=== PATIENT | female | born 1980 | race Two or more races ===

== ENCOUNTER 2019-11-14 14:38 | Emergency (ER) | payer OTHER ==
[~2019-11-14] VITALS: Ht 170.2 cm; Wt 74.1 kg
[2019-11-14 14:38] VITALS: BP 153/78
--- NOTE | 2019-11-14 15:59 | PHYS DOC ---
General Adult EDM: Chief Complaint: Neck Pain HPI: HPI: History obtained from the patient. Patient is a 39-year-old female with no reported PMH who presents with chief complaint of acute onset neck pain. Patient states she is noticed cervical paraspinal stiffness over the past 2 weeks. States the pain seemed to acutely worsened today. States she was actively suctioning discharge from her baby's nose when she noted acute midline cervical spine pain that radiates to her mid thoracic region. She states flexing or extending her neck seems to exacerbate the symptoms. She states she is able to rotate her head left and right with minimal symptoms. She notes some lateral movement of her head to the right seems to make the pain worse. She denies any fevers. Denies any photophobia or phonophobia. Denies headache. Denies vomiting. Denies history of IV drug use. Denies any low back pain. Denies trauma or injury. States the pain does not radiate to the arms either direction. She states she was seen in urgent care facility prior to arrival. She states she was instructed report to the emergency department for potential neck imaging. She was prescribed prednisone and Flexeril by that urgent care facility. No other complaints. Review of Systems: Review of Systems: Constitutional: Denies fever or chills Eyes: Denies change in visual acuity HENT: Denies nasal congestion or sore throat Respiratory: Denies cough or shortness of breath Cardiovascular: Denies chest pain or edema GI: Denies abdominal pain, nausea, vomiting, bloody stools or diarrhea : Denies dysuria Musculoskeletal: Positive for neck and back pain Integument: Denies rash Neurologic: Denies headache, focal weakness or sensory changes Endocrine: Denies polyuria or polydipsia Lymphatic: Denies swollen glands Psychiatric: Denies depression or anxiety Heart Score: Risk Factors: Risk Factors: DM, Current or recent (<one month) smoker, HTN, HLP, family history of CAD, obesity. Risk Scores: Score 0 - 3: 2.5% MACE over next 6 weeks - Discharge Home Score 4 - 6: 20.3% MACE over next 6 weeks - Admit for Clinical Observation Score 7 - 10: 72.7% MACE over next 6 weeks - Early Invasive Strategies Physical Exam: PE: Constitutional: Well developed, well nourished, no acute distress, non-toxic appearance. [] HENT: Normocephalic, atraumatic, bilateral external ears normal, oropharynx moist, no oral exudates, nose normal. [] Eyes: PERRLA, EOMI, conjunctiva normal, no discharge. [] Neck: Limited flexion and extension range of motion secondary to pain. Compression of the head does not exacerbate symptoms. Slight worsening of symptoms with right lateral head movement. Rotational movement does not make patient's symptoms worse. Negative Kernig's sign. Cardiovascular:Heart rate regular rhythm, no murmur [] Lungs & Thorax: Bilateral breath sounds clear to auscultation [] Abdomen: soft, no tenderness, no masses, no pulsatile masses. [] Skin: Warm, dry, no erythema, no rash. [] Back: No tenderness, no CVA tenderness. [] Extremities: No tenderness, no cyanosis, no clubbing, ROM intact, no edema. Tso strength plus 5 out of 5. Sensation intact in median, ulnar, radial nerve distributions bilaterally. Currently movements intact Bilaterally. [] Neurologic: Alert and oriented X 3, normal motor function, normal sensory function, no focal deficits noted. [] Psychologic: Affect normal, judgement normal, mood normal. [] EKG: EKG: [] Radiology/Procedures: Radiology/Procedures: [place] [address] IMAGING REPORT Signed PATIENT: MURRAY RANKINOUNT: [id number] : 1980 LOCATION: ER AGE: 39 SEX: F EXAM STATUS: REG ER ORD. PHYSICIAN: SCOTT GONZALEZ DO REASON: neck pain radiating down throacic spine PROCEDURE: CT CERVICAL SPINE WO CONTRAST STUDY: 1. CT cervical spine without contrast 2. CT thoracic spine without contrast INDICATION: Neck pain radiating down to the thoracic spine. COMPARISON: None. TECHNIQUE: Helical CT imaging of the cervical and thoracic spine performed without the use of contrast. Coronal and sagittal reformats were obtained. One or more of the following individualized dose reduction techniques were utilized for this examination: 1. Automated exposure control 2. Adjustment of the mA and/or kV according to patient size 3. Use of iterative reconstruction technique. FINDINGS: CERVICAL SPINE: No acute fracture or aggressive osseous process. Straightening of cervical lordosis with mild reversal centered at C5. Disc space height is maintained. No significant listhesis. No advanced facet degeneration with only mild facet arthrosis on the left at C7-T1. Though not well evaluated by technique, no significant central canal or neural foraminal stenosis is identified. Unremarkable thyroid, prevertebral/dorsal paraspinous soft tissues and cervical chain lymph nodes. CSF density collection at the middle cranial fossa on the right most typical of a subarachnoid cyst. THORACIC SPINE: Mild ventral height loss at T2 is not an acute finding and could be developmental. No acute fracture or aggressive osseous process. Incidental unilateral pars defect on the left at L2. Normal vertebral body alignment. Maintained disc space height. Unremarkable posterior elements. No advanced degenerative changes. There is a small peripherally mineralized disc protrusion at T1-T2 but without evidence for significant central canal stenosis at this level or elsewhere. No osseous neural foraminal encroachment. No noteworthy abnormality involving the visualized lungs, mediastinal contents or upper abdomen. IMPRESSION: CERVICAL SPINE: 1. No acute osseous abnormality. No advanced degenerative changes and there is no evidence by CT for significant central canal or neural foraminal stenosis. There does appear to be a mild disc bulge at C5-C6 but again with presumably no more than mild associated central canal stenosis. If there are ongoing symptoms, eventual nonemergent/outpatient MRI could be performed. THORACIC SPINE: 1. No acute osseous abnormality or advanced degenerative changes. No evidence for significant central canal or neural foraminal stenosis. Electronically signed by: LORAINE LEYVA MD (11/14/2019 4:22 PM) [id number] DICTATED AND SIGNED BY: LORAINE LEYVA MD DATE: 11/14/19 162 CC: PCP,UNKNOWN; SCOTT GONZALEZ DO ~ [] Course & Med Decision Making: Course & Med Decision Making Pertinent Labs and Imaging studies reviewed. (See chart for details) [] Patient is a very pleasant 39-year-old female presents with chief complaint of midline neck pain that seems to radiate down her thoracic spine. Denies any trauma or injury. Initial vital signs grossly unremarkable. No meningeal signs or signs of infection appreciated. I do feel her symptoms are likely musculoskeletal in nature. CT imaging of the neck was obtained and reveals slight bulging at C5-C6 vertebra. Patient has no focal neurologic deficits on examination. Patient was given medication in the emergency department for her symptoms. She did show improved range of motion after medication. I did not feel laboratory analysis will yield further diagnostic information. I do feel she is appropriate for discharge home. She was instructed to follow-up with her primary care physician in the next 2 to 3 days. Return precautions were discussed and understood. She does show prescriptions for a short steroid course as well as Flexeril from the urgent care provider. She will be given additional Tylenol and Lidoderm patch for relief. Dragon Disclaimer: Dragon Disclaimer: This electronic medical record was generated, in whole or in part, using a voice recognition dictation system. Departure Departure: Impression: Primary Impression: Neck pain Additional Impression: Cervical disc disorder of mid-cervical region Disposition: HOME/RESIDENCE PRIOR TO ADM Condition: STABLE Referrals: PCP,UNKNOWN (PCP) MELL SCHULTZ MD Patient Instructions: Anterior Cervical Diskectomy and Fusion, Cervical Radiculopathy Additional Instructions: Please follow-up with your primary care physician in the next 2 to 3 days. Scripts Lidocaine (Lidocaine PATCH ) 1 Each Adh..patch 1 EACH TP DAILY for FOR LOCAL PAIN for 5 Days, #5 PATCH REMOVE AFTER 12 HOURS Prov: SCOTT GONZALEZ DO 11/14/19 Acetaminophen (TYLENOL) 325 Mg Tablet 325 MG PO TID PRN PRN for PAIN, #20 TAB Prov: SCOTT GONZALEZ DO 11/14/19 SCOTT GONZALEZ DO Nov 14, 2019 15:59
--- NOTE | 2019-11-14 16:24 | RAD ---
STUDY: 1. CT cervical spine without contrast 2. CT thoracic spine without contrast INDICATION: Neck pain radiating down to the thoracic spine. COMPARISON: None. TECHNIQUE: Helical CT imaging of the cervical and thoracic spine performed without the use of contrast. Coronal and sagittal reformats were obtained. One or more of the following individualized dose reduction techniques were utilized for this examination: 1. Automated exposure control 2. Adjustment of the mA and/or kV according to patient size 3. Use of iterative reconstruction technique. FINDINGS: CERVICAL SPINE: No acute fracture or aggressive osseous process. Straightening of cervical lordosis with mild reversal centered at C5. Disc space height is maintained. No significant listhesis. No advanced facet degeneration with only mild facet arthrosis on the left at C7-T1. Though not well evaluated by technique, no significant central canal or neural foraminal stenosis is identified. Unremarkable thyroid, prevertebral/dorsal paraspinous soft tissues and cervical chain lymph nodes. CSF density collection at the middle cranial fossa on the right most typical of a subarachnoid cyst. THORACIC SPINE: Mild ventral height loss at T2 is not an acute finding and could be developmental. No acute fracture or aggressive osseous process. Incidental unilateral pars defect on the left at L2. Normal vertebral body alignment. Maintained disc space height. Unremarkable posterior elements. No advanced degenerative changes. There is a small peripherally mineralized disc protrusion at T1-T2 but without evidence for significant central canal stenosis at this level or elsewhere. No osseous neural foraminal encroachment. No noteworthy abnormality involving the visualized lungs, mediastinal contents or upper abdomen. IMPRESSION: CERVICAL SPINE: 1. No acute osseous abnormality. No advanced degenerative changes and there is no evidence by CT for significant central canal or neural foraminal stenosis. There does appear to be a mild disc bulge at C5-C6 but again with presumably no more than mild associated central canal stenosis. If there are ongoing symptoms, eventual nonemergent/outpatient MRI could be performed. THORACIC SPINE: 1. No acute osseous abnormality or advanced degenerative changes. No evidence for significant central canal or neural foraminal stenosis. Electronically signed by: LORAINE LEYVA MD (11/14/2019 4:22 PM) [id number]
[2019-11-14] MEDS ORDERED: LIDOCAINE (700MG/PATCH) PATCH. TD SCH (16:30)
[2019-11-14] MEDS ORDERED: HYDROcodone/APAP 5/325MG 1 TAB TABLET PO ONE (16:30)
[2019-11-14] MEDS ORDERED: KETOROLAC 30 MG/ML VIAL. IM ONE (16:30)
[2019-11-14] MEDS ORDERED: LIDO700A21 TP (16:44)
[2019-11-14] MEDS ORDERED: ACET325T9 PO (16:44)
[2019-11-14] MEDS ORDERED: CYCLOBENZAPRINE 10 MG TABLET. PO ONE (16:45)
== END 2019-11-14 17:08 | disposition home or self-care (01) ==
LOC: ER 14:38
DX: M50.822 Other cervical disc disorders at C5-C6 level (principal)
CPT/HCPCS: 72125; 72128; 96372; 99285; J1885

== ENCOUNTER 2020-02-22 11:02 | Emergency (ER) | payer OTHER ==
[~2020-02-22] VITALS: Ht 170.2 cm; Wt 72.0 kg
[~2020-02-22 11:02] MED LIST: ACET325T9 PO; LIDO700A21 TP
[2020-02-22 11:27] VITALS: BP 126/79
[2020-02-22 12:17] LABS: BASO % 0 % (0-3); EOS # 0.1 x10^3/uL (0.0-0.7); EOS % 1 % (0-3); HEMATOCRIT 38.8 % (36.0-47.0); HEMOGLOBIN 12.9 g/dL (12.0-15.5); LYMPH # 1.6 x10^3/uL (1.0-4.8); LYMPH % 15 % (24-48); MEAN CORPUSCULAR HEMOGLOBIN 31 pg (25-35); MEAN CORPUSCULAR HGB CONC 33 g/dL (31-37); MEAN CORPUSCULAR VOLUME 92 fL (79-100); MONO # 0.7 x10^3/uL (0.0-1.1); MONO % 6 % (0-9); NEUT # 8.7 x10^3uL (1.8-7.7); NEUT % 78 % (31-73); PLATELET COUNT 295 x10^3/uL (140-400); RED BLOOD COUNT 4.23 x10^6/uL (3.50-5.40); RED CELL DISTRIBUTION WIDTH 12.1 % (11.5-14.5); WHITE BLOOD COUNT 11.2 x10^3/uL (4.0-11.0)
[2020-02-22 12:31] LABS: CALCIUM 8.4 mg/dL (8.5-10.1); CREATININE 0.5 mg/dL (0.6-1.0); GFR 138.1; POTASSIUM 4.5 mmol/L (3.5-5.1)
[2020-02-22 12:37] LABS: ALBUMIN 3.4 g/dL (3.4-5.0); ALBUMIN/GLOBULIN RATIO 0.8 (1.0-1.7); TOTAL BILIRUBIN 0.2 mg/dL (0.2-1.0); TOTAL PROTEIN 7.5 g/dL (6.4-8.2)
[2020-02-22 12:43] LABS: BILIRUBIN,URINE NEG (NEG); CLARITY,URINE HAZY; COLOR,URINE YELLOW; GLUCOSE,URINE NEG (NEG); NITRITE,URINE NEG (NEG); RBC,URINE OCC /HPF (0-2)
[2020-02-22 12:44] LABS: BACTERIA,URINE FEW /HPF (0-FEW); SQUAMOUS EPITHELIAL CELL,UR FEW /LPF
--- NOTE | 2020-02-22 13:30 | RAD ---
First trimester ultrasound less than 14 weeks: Transabdominal and transvaginal exam. Clinical indications: 7 weeks . Vaginal bleeding. Findings: Transabdominal study and transvaginal sonography was performed. Transvaginal sonography was performed to further evaluate the gestational sac. Eustace-rump length cannot be seen by transabdominal exam. Number of fetuses: Single. Average crown-rump length: 0.77 cm which corresponds to an approximate gestational age of 6 weeks and 5 days +/- 4 days. EDC is October 12, 2020. Sac shape and amniotic fluid volume: Normal. heart rate: 153 beats per minute Placenta location: Indeterminate due to the early stage of gestation. Cervical length: Greater than 3.0 cm. Extrachorionic hemorrhage: None. Uterus: Small posterior lower uterine fibroid or complex Asher's cyst is which measures 8 mm. Maternal ovaries: Right ovary: 2.6 cm x 1.6 cm x 1.9 cm. Normal. Color-flow Doppler: Present Left ovary: 4.3 cm x 1.8 cm x 2.9 cm. There is a 2.0 cm corpus luteum cyst Color-flow Doppler: Pr esent Adnexa: no adnexal masses are seen. Free fluid: None. Impression: Single intrauterine gestation with approximate gestational age of 6 weeks and 5 days with an EDC of October 12, 2020. heart rate is 153 beats per minute. Electronically signed by: Aureliano Weiss MD (02/22/2020 1:27 PM) [id number]
--- NOTE | 2020-02-22 13:43 | PHYS DOC ---
Past History Past Medical History: No Pertinent History Past Surgical History: Other Additional Past Surgical Histo: uterine surgery, IVF Alcohol Use: None General Adult EDM: Chief Complaint: VAGINAL BLEEDING HPI: HPI: 40 yo at approximately 7 weeks , presents to the ED with complaints of vaginal spotting for the past 24 hours and a white thick itchy discharge for the past few days. Patient reports a history of uterine fibroids. 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 States she returned to [facility] with this current for IVF tx. only one male sexual partner. No history of STIs. No current vaginal bleeding, abdominal, back or pelvic pain. Also complains of multiple episodes of nonbloody nonbilious v omiting in the ED and states this has been resistant for the last few weeks and a . States no relief with vitamin B6 at home. Review of Systems: Review of Systems: Constitutional: Denies fever or chills Eyes: Denies change in visual acuity HENT: Denies nasal congestion or sore throat Respiratory: Denies cough or shortness of breath Cardiovascular: Denies chest pain or edema GI: Denies abdominal pain, nausea, vomiting, bloody stools or diarrhea : Denies dysuria or hematuria Musculoskeletal: Denies back pain or joint pain Integument: Denies rash or diaphoresis Neurologic: Denies headache, focal weakness or sensory changes Endocrine: Denies polyuria or polydipsia Lymphatic: Denies swollen glands Psychiatric: Denies depression or anxiety Allergies: Allergies: Allergies Coded Allergies Type Severity Reaction Last Updated Verified No Known Drug Allergies 11/14/19 No Physical Exam: PE: Constitutional: Well developed, well nourished, no acute distress, non-toxic appearance. HENT: Normocephalic, atraumatic, Eyes: EOMI, conjunctiva normal, no discharge. Neck: Normal range of motion, supple, Cardiovascular: S1/2 present, regular rhythm Lungs & Thorax: Speaking in full sentences, bilateral equal chest rise, no tachypnea or increased work of breathing Abdomen: soft, no tenderness, 2 episodes of dry heaving in ED Skin: Warm, dry, no erythema, no rash. [] Back: No tenderness, no CVA tenderness. [] Extremities: No tenderness, no cyanosis, no edema Neurologic: Alert and oriented X 3, normal motor function, normal sensory function, no focal deficits noted. [] Psychologic: Affect normal, judgement normal, mood normal. [] Pelvic: Chaperoned by RN, external genitalia normal, no vaginal bleeding, thick, clumpy white nonmalodorous discharge, cervical os closed, no cervical erythema, no CMT or adnexal tenderness, no external or internal vaginal bleeding on pelvic exam, tolerated exam well Current Patient Data: Labs: Laboratory Tests Test 02/22/20 10:23 02/22/20 12:25 White Blood Count 11.2 x10^3/uL (4.0-11.0) H Red Blood Count 4.23 x10^6/uL (3.50-5.40) Hemoglobin 12.9 g/dL (12.0-15.5) Hematocrit 38.8 % (36.0-47.0) Mean Corpuscular Volume 92 fL (79-100) Mean Corpuscular Hemoglobin 31 pg (25-35) Mean Corpuscular Hemoglobin Concent 33 g/dL (31-37) Red Cell Distribution Width 12.1 % (11.5-14.5) Platelet Count 295 x10^3/uL (140-400) Neutrophils (%) (Auto) 78 % (31-73) H Lymphocytes (%) (Auto) 15 % (24-48) L Monocytes (%) (Auto) 6 % (0-9) Eosinophils (%) (Auto) 1 % (0-3) Basophils (%) (Auto) 0 % (0-3) Neutrophils # (Auto) 8.7 x10^3uL (1.8-7.7) H Lymphocytes # (Auto) 1.6 x10^3/uL (1.0-4.8) Monocytes # (Auto) 0.7 x10^3/uL (0.0-1.1) Eosinophils # (Auto) 0.1 x10^3/uL (0.0-0.7) Basophils # (Auto) 0.0 x10^3/uL (0.0-0.2) Prothrombin Time 9.5 SEC (9.4-11.4) Prothrombin Time INR 0.9 (0.9-1.1) Activated Partial Thromboplast Time 27 SEC (23-33) Maternal Serum HCG Beta Subunit 199782 mIU/mL (0-6) H Sodium Level 133 mmol/L (136-145) L Potassium Level 4.5 mmol/L (3.5-5.1) Chloride Level 102 mmol/L (98-107) Carbon Dioxide Level 25 mmol/L (21-32) Anion Gap 6 (6-14) Blood Urea Nitrogen 8 mg/dL (7-20) Creatinine 0.5 mg/dL (0.6-1.0) L Estimated GFR (Cockcroft-Gault) 138.1 BUN/Creatinine Ratio 16 (6-20) Glucose Level 93 mg/dL (70-99) Calcium Level 8.4 mg/dL (8.5-10.1) L Total Bilirubin 0.2 mg/dL (0.2-1.0) Aspartate Amino Transferase (AST) 12 U/L (15-37) L Alanine Aminotransferase (ALT) 19 U/L (14-59) Alkaline Phosphatase 54 U/L (46-116) Total Protein 7.5 g/dL (6.4-8.2) Albumin 3.4 g/dL (3.4-5.0) Albumin/Globulin Ratio 0.8 (1.0-1.7) L Urine Collection Type Unknown Urine Color Yellow Urine Clarity Hazy Urine pH 7.0 Urine Specific [place] 1.020 Urine Protein Neg (NEG-TRACE) Urine Glucose (UA) Neg mg/dL (NEG) Urine Ketones (Stick) Neg mg/dL (NEG) Urine Blood Neg (NEG) Urine Nitrite Neg (NEG) Urine Bilirubin Neg (NEG) Urine Urobilinogen Dipstick 1.0 mg/dL (0.2 mg/dL) Urine Leukocyte Esterase Small (NEG) Urine RBC Occ /HPF (0-2) Urine WBC 1-4 /HPF (0-4) Urine Squamous Epithelial Cells Few /LPF Urine Bacteria Few /HPF (0-FEW) Vital Signs: Vital Signs Date Time Temp Pulse Resp B/P (MAP) Pulse Ox O2 Delivery O2 Flow Rate FiO2 02/22/20 11:27 98.2 67 16 126/79 (95) 98 Room Air EKG: EKG: [] Radiology/Procedures: Radiology/Procedures: IMAGING REPORT Signed [id number] 1980 LOCATION: ER AGE: 40 SEX: F EXAM STATUS: REG ER ORD. PHYSICIAN: PRANEETH PISANO DO REASON: vb in preg-7 wks PROCEDURE: TRANSVAGINAL First trimester ultrasound less than 14 weeks: Transabdominal and transvaginal exam. Clinical indications: 7 weeks . Vaginal bleeding. Findings: Transabdominal study and transvaginal sonography was performed. Transvaginal sonography was performed to further evaluate the gestational sac. [place]-rump length cannot be seen by transabdominal exam. Number of fetuses: Single. Average crown-rump length: 0.77 cm which corresponds to an approximate gestational age of 6 weeks and 5 days +/- 4 days. EDC is October 12, 2020. Sac shape and amniotic fluid volume: Normal. heart rate: 153 beats per minute Placenta location: Indeterminate due to the early stage of gestation. Cervical length: Greater than 3.0 cm. Extrachorionic hemorrhage: None. Uterus: Small posterior lower uterine fibroid or complex Asher's cyst is which measures 8 mm. Maternal ovaries: Right ovary: 2.6 cm x 1.6 cm x 1.9 cm. Normal. Color-flow Doppler: Present Left ovary: 4.3 cm x 1.8 cm x 2.9 cm. There is a 2.0 cm corpus luteum cyst Color-flow Doppler: Present Adnexa: no adnexal masses are seen. Free fluid: None. Impression: Single intrauterine gestation with approximate gestational age of 6 weeks and 5 days with an EDC of October 12, 2020. heart rate is 153 beats per minute. Electronically signed by: Guera Weiss MD (02/22/2020 1:27 PM) [id number] DICTATED AND SIGNED BY: GUERA WEISS MD DATE: 02/22/20 1308 CC: PCP,NO; PRANEETH PISANO DO ~MTH0 0 Heart Score: Risk Factors: Risk Factors: DM, Current or recent (<one month) smoker, HTN, HLP, family history of CAD, obesity. Risk Scores: Score 0 - 3: 2.5% MACE over next 6 weeks - Discharge Home Score 4 - 6: 20.3% MACE over next 6 weeks - Admit for Clinical Observation Score 7 - 10: 72.7% MACE over next 6 weeks - Early Invasive Strategies Course & Med Decision Making: Course & Med Decision Making Pertinent Labs and Imaging studies reviewed. (See chart for details) Concern for threatened intrauterine miscarriage-no active bleeding on pelvic exam today. Patient also has candidal yeast infection. Vaginal ultrasound did show a small posterior lower uterine fibroid or complex Asher's cyst is which measures 8 mm-we will likely need repeat imaging to reevaluate this. We will treat with clotrimazole. Will discharge home with strict ED return precautions were given for abdominal or back pain, pelvic cramping, vaginal bleeding or fever. Encouraged urgent outpatient follow-up with PMD and [facility] in 48 hours for hCG recheck. Life-threatening processes were considered but are low suspicion at this time, given history, physical exam and ED workup. Pt was educated on all prescription medications and adverse effects. All patient's questions were answered and pt was stable at time of discharge. Life/limb-threatening differential includes but is not limited to, ectopic /heterotopic , septic , infection (endometritis, sti/pid, cystitis, pyelonephritis, Erickson's gangrene or necrotizing fasciit is, abscess), ovarian torsion, ruptured hemorrhagic ovarian cyst, endometriosis, ureterolithiasis, thrombophlebitis, organ prolapse, abdominal aortic aneurysm, mesenteric ischemia, neoplasm, bowel obstruction or surgical abdomen. I spoken with the patient and her caregivers. I explained the patient's condition, diagnoses and treatment plan based on the information available to me at this time. I have answered the patient and her caregiver's questions and addressed any concerns. The patient and her caregivers have a good understanding of patient's diagnosis, condition and treatment plan as can be expected at this point. Vital signs have been stable. Patient's condition is stable and appropriate for discharge from the emergency department. Patient will pursue further outpatient evaluation with primary care physician or other designated or consulting physician as outlined in the discharge instructions. The patient and/or caregivers are agreeable to this plan of care and follow-up instructions have been explained in detail. The patient and/or caregivers have received these instructions in written form and have expressed an understanding of the discharge instructions. The patient and/or caregivers are aware that any significant change of condition or worsening of symptoms should prompt immediate return to this or the closest emergency department or call to 911. Luis Disclaimer: Luis Disclaimer: This electronic medical record was generated, in whole or in part, using a voice recognition dictation system. Departure Departure: Impression: Primary Impression: Threatened Additional Impressions: Vaginal yeast infection Nausea/vomiting in Disposition: 01 DC HOME SELF CARE/HOMELESS Condition: STABLE Referrals: PCP,NO (PCP) FOLLOW UP WITH FAMILY MEDICINE: Complete [facility], [facility] [address] [place] [address] OR [facility] [address] [place] [address], Patient Instructions: Candidal Vulvovaginitis, [id number], Nausea and Vomiting, Threatened Miscarriage Additional Instructions: FOLLOW UP WITH OBGYN: [facility] [address], [address] [place] [address] EMERGENCY DEPARTMENT GENERAL DISCHARGE INSTRUCTIONS Thank you for coming to [facility] (ED) today and trusting us with you care. We trust that you had a positivie experience in our Emergency Department. If you wish to speak to the department management, you may call the director at [phone]. YOUR FOLLOW UP INSTRUCTIONS ARE FOLLOWS: 1. Do you have a private Doctor? If you do not have a private doctor, please ask for a resource list of physicians or clinics that may be able to assist you with follow up care. 2. The Emergency Physician has interpreted your x-rays. The X-Ray specialist will also review them. If there is a change in the findings, you will be notified in 48 hours when at all possible. 3. A lab test or culture has been done, your results will be reviewed and you will be notified if you need a change in treatment. ADDITIONAL INSTRUCTIONS AND INFORMATION: 1. Your care today has been supervised by a physician who is specially trained in emergency care. Many problems require more than one evaluation for a complete diagnosis and treatment. We recommend that you schedule your follow up appointment as recommended to ensure complete treatment of you illness or injury. If you are unable to obtain follow up care and continue to have a problem, or if your condition worsens, we recommend that you return to the ED. 2. We are not able to safely determine your condition over the phone nor are we able to give sound medical advice over the phone. For these safety reasons, if you call for medical advice we will ask you to come to the ED for further evaluation. 3. If you have any questions regarding these discharge instructions please call the ED at [phone]. SAFETY INFORMATION: In the interest of safety, wellness, and injury prevention; we encourage you to wear your sealbelt, if you smoke; quite smoking, and we encourage family to use a protective helmet for bicycling and other sporting events that present an increased risk for head injury. IF YOUR SYMPTOMS WORSEN OR NEW SYMPTOMS DEVELOP, OR YOU HAVE CONCERNS ABOUT YOUR CONDITION; OR IF YOUR CONDITION WORSENS WHILE YOU ARE WAITING FOR YOUR FOLLOW UP APPOINTMENT; EITHER CONTACT YOUR PRIMARY CARE DOCTOR, THE PHYSICIAN WHOSE NAME AND NUMBER YOU WERE GIVEN, OR RETURN TO THE ED IMMEDIATELY. Scripts Promethazine Hcl (PROMETHAZINE HCL) 25 Mg Tablet 1 TAB PO PRN Q6HRS for nausea, #20 TAB Prov: PRANEETH PISANO DO 02/22/20 Doxylamine Succinate/Vit B6 (Doxylamine-Pyridoxine 10-10 mg) 1 Each Tablet.dr 1 EACH PO QID for nausea, #30 TAB Prov: PRANEETH PISANO DO 02/22/20 Clotrimazole (CLOTRIMAZOLE 3) 21 Gm Cream.appl 1 APPFUL VG QHS for yeast infection for 3 Days, #21 GM 0 Refills 2% cream for 3 days Prov: PRANEETH PISANO DO 02/22/20 PRANEETH PISANO DO Feb 22, 2020 13:43
[2020-02-22] MEDS ORDERED: METOCLOPRAMIDE 10 MG TABLET PO ONE (14:15)
[2020-02-22] MEDS ORDERED: ONDANSETRON ODT 4 MG TAB.RAPDIS PO ONE (14:15)
[2020-02-22] MEDS ORDERED: CLOT21CR7 VG ×2 (14:37→14:38)
[2020-02-22] MEDS ORDERED: PROM25TA10 PO (14:40)
[2020-02-22] MEDS ORDERED: DOXY1TAB8 PO (14:40)
== END 2020-02-22 16:15 | disposition home or self-care (01) ==
LOC: ER 11:02
DX: O20.0 Threatened abortion (principal); O98.811 Other maternal infectious and parasitic diseases complicating pregnancy, first trimester; B37.3 Candidiasis of vulva and vagina; O21.9 Vomiting of pregnancy, unspecified; Z3A.01 Less than 8 weeks gestation of pregnancy
CPT/HCPCS: 36415; 76817; 80053; 81001; 84702; 85025; 85610; 85730; 86900; 86901; 87086; 99284; Q0111; Q0162